=== PATIENT | male | born 1955 | race Caucasian/White ===

== ENCOUNTER 2019-04-19 07:30 | Outpatient (CLI) | payer MEDICARE, SELFPAY ==
--- NOTE | ~2019-04-19 | US_ITS ---
EXAMINATION: US aorta DATE: 04/19/2019 08:19 INDICATION: Abdominal aortic aneurysm. TECHNIQUE: Grayscale, color Doppler, and pulsed Doppler images of the aorta and common iliac arteries were obtained. COMPARISON: None. FINDINGS: The aorta is normal in caliber. The right common iliac artery is normal in caliber. The left common i liac artery is normal in caliber. IMPRESSION: 1. No abdominal aortic aneurysm. Reviewed, dictated and finalized at location A. [facility]NER
== END 2019-04-19 07:31 | disposition home or self-care (01) ==
LOC: CHSIMG 07:35
PROVIDERS: PCP Internal Medicine; Visit Provider Internal Medicine
DX: I71.9 Aortic aneurysm of unspecified site, without rupture (principal)
CPT/HCPCS: 76775

== ENCOUNTER 2019-05-10 06:58 | Outpatient (CLI) | payer MEDICARE, SELFPAY ==
--- NOTE | 2019-05-17 02:55 | SLEEP_ITS ---
Home Sleep Test DATE OF STUDY: 05/10/2019 ORDERING PROVIDER: Abhijit Vail, nurse practitioner. REASON FOR THIS STUDY: Obstructive sleep apnea syndrome. HISTORY: This patient is a 63-year-old man, 5 feet 9 inches tall, weighing 190 pounds with a body mass index of 28 kg/metered square. He has a history of obstructive sleep apnea syndrome, on CPAP. He has lost 100 pounds and his pressure on his device is too high. He does try to use CPAP at night, but it is difficult due to the excessive pressure. This has been going on several months. He thinks he does not need a CPAP any longer. He does not awaken from sleep feeling short of breath, does not awaken at night with heartburn, belching, or coughing. He denies snoring. He occasionally has trouble sleeping with a cold. He does not gasp for breath at night, does not have breathing problems witnessed by others. Does not sweat excessively at night and does not notice his heart pounding or beating irregularly at night. He does not fall asleep during the day involuntarily, or while driving. He does not fall asleep during physical effort. He denies loss of muscle tone with strong emotion. He does not feel paralyzed on waking or falling asleep. He rarely has vivid dreamlike scenes upon awakening or falling asleep. He is never afraid to go to sleep and denies nightmares. He occasionally remembers his dreams. He rarely has racing thoughts. He does not have sadness or depression. He rarely has anxiety. He rarely has muscular tension or notices parts of his body jerking. He rarely kicks at night. He rarely has crawly achy feelings in his legs or leg pain at night. He denies morning jaw pain or grinding his teeth. He occasionally is bothered by pain during the day. He is not awakened by pain at night. He rarely wakes up feeling stiff in the morning with sore achy muscles. He is retired and does not have any daytime dysfunction due to excessive sleepiness. He normally goes to bed at 10:30 p.m., falling asleep within 10 minutes and will sleep through the night unless the dog wakes him up. He estimates 5 to 6 hours of sleep at night. He wakes in the morning at 5 a.m. Weekend schedule is the same. He does not take naps. Most of the time he feels good in the morning. MEDICAL COMORBIDITIES: Seasonal allergies, mild COPD, kidney stones, multiple joint surgeries including 2 knee replacements. He had a gastric bypass surgery. He has a cage surgically placed in his neck, tonsillectomy. MEDICATIONS: 1. Allopurinol 100 mg daily for kidney stones. 2. Calcium 3 times a day. 3. Magnesium supplements 1 daily. 4. B12 daily. 5. Multivitamin twice a day. 6. Vitamin C twice a day. 7. Biotin once daily. HABITS: Never smoked tobacco. No caffeine or alcohol. DESCRIPTION OF THE STUDY: On the [place] Sleepiness Scale, his score is 3. This was conducted as an unattended home sleep test with 4-channel monitoring including respiratory effort channel, snoring channel, pulse oximetry, and heart rate channel. This study was scored using [facility] guidelines. The duration was 7 hours 12 minutes. The apnea-hypopnea index is 7.4. The oxygen desaturation index is 7.5. The lowest desaturation is 84%. Mean saturation for the study was 94%. He had 3 apneas, which were all obstructive. He had 50 hypopneas. He had 200 snoring events and desaturated 53 times, spending 3 minutes below 88% saturation, which was 1% of the study. Heart rate ranged from 51 to 86. IMPRESSION: This home sleep test shows evidence of mild obstructive sleep apnea syndrome G47.33 with desaturation to 84%, mild snoring, and 1 minute spent below 88% saturation. The minimum desaturation was 84%. The patient has a prior history of obstructive sleep apnea syndrome
== END 2019-05-10 06:59 | disposition home or self-care (01) ==
LOC: ANHCSM 06:58
PROVIDERS: PCP Internal Medicine; Visit Provider Nurse Practitioner Family
DX: G47.33 Obstructive sleep apnea (adult) (pediatric) (principal)
CPT/HCPCS: 95806

== ENCOUNTER 2022-09-19 11:01 | Outpatient (CLI) | payer MEDICARE, SELFPAY ==
--- NOTE | ~2022-09-19 | CT_ITS ---
EXAMINATION: CT abdomen pelvis wo con DATE: 09/19/2022 11:37 INDICATION: Abdominal pain TECHNIQUE: Computed tomography (CT) of the abdomen and pelvis was performed without intravenous contr ast. The dose-length product (DLP) was 1467.02 mGy-cm. Automated exposure control and iterative recon struction technique were employed. COMPARISON: None FINDINGS: Minimal dependent atelectasis is present in the lung bases. The heart size is normal. Surgi peter changes in the stomach are consistent with weight loss surgery. The liver, spleen, and adrenal gl ands are normal. Punctate calcifications of the pancreas are consistent with chronic pancreatitis. St ones are present in the gallbladder which is mildly distended. No pericholecystic inflammation is carisa ntified. The kidneys are unremarkable. There is mild periportal lymphadenopathy, likely reactive. No free intraperitoneal gas or evidence of bowel obstruction. Changes of bilateral hip arthroplasty obsc ure visualization of the low pelvis. There is moderate lumbar spondylosis. IMPRESSION: 1. Cholelithiasis and mild gallbladder distention without additional findings of cholecystitis. Recom mend correlation for right upper quadrant tenderness. Reviewed, dictated and finalized at location B. IMPRESSION: 1. Cholelithiasis and mild gallbladder distention without additional findings o f cholecystitis. Recommend correlation for right upper quadrant tenderness.
[2022-09-19 11:22] LABS: Basophils Absolute Auto 0.03 K/mm3 (0.00-0.10); Basophils Percent Auto 0.4 % (0.0-1.0); Eosinophils Absolute Auto 0.02 K/mm3 (0.02-0.50); Eosinophils Percent Auto 0.3 % (1.0-6.0); Hematocrit 45.3 % (37.0-46.0); Hemoglobin 14.9 g/dL (12.4-15.3); Immature Granulocyte Absolute 0.03 K/mm3 (0.00-0.00); Immature Granulocyte Percent A 0.4 % (0.0-0.0); Lymphocytes Absolute Auto 0.62 K/mm3 (1.10-4.50); Lymphocytes Percent Auto 8.5 % (18.0-42.0); Mean Corpuscular HGB Conc 32.9 g/dL (32.0-36.0); Mean Corpuscular Hemoglobin 28.9 pg (27.0-31.0); Mean Corpuscular Volume 87.8 fL (78.0-102.0); Mean Platelet Volume 9.9 fl (8.7-11.0); Monocytes Absolute Auto 0.52 K/mm3 (0.10-0.90); Monocytes Percent Auto 7.1 % (2.0-11.0); Neutrophils Absolute Auto 6.1 K/mm3 (1.7-7.2); Neutrophils Percent Auto 83.3 % (50.0-70.0); Platelet Count Result 143 K/mm3 (150-420); Red Blood Count 5.16 M/mm3 (4.70-6.10); Red Cell Distribution Width 12.2 % (11.6-14.4); White Blood Count 7.3 K/mm3 (4.8-10.8)
[2022-09-19 11:50] LABS: Alanine Aminotransferase 19 U/L (16-63); Albumin Level 3.3 g/dL (3.4-5.0); Alkaline Phosphatase 75 U/L (46-116); Anion Gap 11 mmol/L (8-16); Aspartate Amino Transferase 21 U/L (15-37); Blood Urea Nitrogen 18 mg/dL (7-18); Calcium 9.1 mg/dL (8.5-10.1); Carbon Dioxide 24 mmol/L (21-32); Chloride 101 mmol/L (98-108); Estimated Glomerular Filt Rate > 60; Glucose 114 mg/dL (70-99); Osmolality Calculated 284 mOsm/kg (285-295); Potassium 4.1 mmol/L (3.5-5.1); Prostate Specific Antigen 8.9 ng/mL (< OR = 4.0); Sodium 136 mmol/L (136-145); Total Protein 7.6 g/dL (6.4-8.2)
== END 2022-09-19 11:02 | disposition home or self-care (01) ==
LOC: CHSLAB 11:05
PROVIDERS: PCP Internal Medicine; Visit Provider Nurse Practitioner Family
DX: R10.9 Unspecified abdominal pain (principal); R50.9 Fever, unspecified; K80.20 Calculus of gallbladder without cholecystitis without obstruction; N41.9 Inflammatory disease of prostate, unspecified
CPT/HCPCS: 36415; 74176; 80053; 84153; 85025; 87040

== ENCOUNTER 2022-10-16 09:40 | Outpatient (CLI) | payer MEDICARE, SELFPAY ==
[2022-10-16 09:56] LABS: Hematocrit 45.4 % (37.0-46.0); Mean Corpuscular Hemoglobin 29.2 pg (27.0-31.0); Mean Corpuscular Volume 88.3 fL (78.0-102.0); Mean Platelet Volume 9.6 fl (8.7-11.0); Platelet Count Result 153 K/mm3 (150-420); Red Blood Count 5.14 M/mm3 (4.70-6.10); Red Cell Distribution Width 12.8 % (11.6-14.4); White Blood Count 3.7 K/mm3 (4.8-10.8)
[2022-10-16 09:59] LABS: Appearance Urine Clear (Clear); Bilirubin Urine Negative (Negative); Blood Urine Negative (Negative); Color Urine Yellow (Yellow); Glucose Urine UA Negative (Negative); Ketones Urine Negative (Negative); Leukocyte Esterase Ur Negative LEU/UL (Negative); Nitrate Urine Negative (Negative); Protein Urine Negative (Negative); Specific Grav Ur 1.015 (1.010-1.020); Urobilinogen Urine 0.2 mg/dL (0.2-1.0)
[2022-10-16 10:05] LABS: Add Urine Microscopic? NO
[2022-10-16 10:18] LABS: Band Neutrophils Percent 0 % (0-6); Basophils Absolute Manual 0.03 K/mm3 (0-0.1); Basophils Percent Manual 1 % (0-1); Eosinophils Absolute Manual 0.11 K/mm3 (0.02-0.5); Eosinophils Percent Manual 3 % (1-6); Lymphocytes Absolute Manual 1.22 K/mm3 (1.1-4.5); Lymphocytes Percent Manual 33 % (18-44); Metamyelocytes Percent 0 %; Monocytes Percent Manual 11 % (3-9); Myelocytes Percent 0 %; Neutrophils Absolute Manual 1.92 K/mm3 (1.3-6.7); Neutrophils Percent Manual 52 % (46-73); Platelet Estimate Adequate (Adequate); Total Cells Counted 100
[2022-10-16 10:44] LABS: Alanine Aminotransferase 20 U/L (16-63); Albumin Level 3.7 g/dL (3.4-5.0); Alkaline Phosphatase 72 U/L (46-116); Amylase 52 U/L (25-115); Anion Gap 8 mmol/L (8-16); Aspartate Amino Transferase 25 U/L (15-37); Bilirubin,Total 0.8 mg/dL (0.00-1.00); Blood Urea Nitrogen 16 mg/dL (7-18); Calcium 8.8 mg/dL (8.5-10.1); Carbon Dioxide 29 mmol/L (21-32); Chloride 105 mmol/L (98-108); Estimated Glomerular Filt Rate > 60; Glucose 88 mg/dL (70-99); Lipase 41 U/L (16-77); Osmolality Calculated 294 mOsm/kg (285-295); Potassium 4.6 mmol/L (3.5-5.1); Sodium 142 mmol/L (136-145); Total Protein 6.9 g/dL (6.4-8.2)
== END 2022-10-16 09:41 | disposition home or self-care (01) ==
LOC: CHSLAB 09:43
PROVIDERS: PCP Internal Medicine; Visit Provider Internal Medicine
DX: K81.0 Acute cholecystitis (principal)
CPT/HCPCS: 36415; 80053; 81003; 82150; 83690; 85025

== ENCOUNTER 2023-07-10 16:24 | Outpatient (CLI) | payer MEDICARE, SELFPAY ==
--- NOTE | ~2023-07-10 | XR_ITS ---
EXAMINATION: XR hand RT min 3V, XR wrist RT min 3V DATE: 07/10/2023 16:43 INDICATION: 2 weeks of right hand and wrist pain TECHNIQUE: 1. Posteroanterior, oblique, and lateral views of the right wrist were obtained. 2. Dorsal palmar, oblique and lateral views of the right hand were obtained. COMPARISON: None. FINDINGS: Alignment of the right hand and wrist is normal. No fracture identified. Mild polyarticular osteoart hritis including at the radiocarpal, triscaphe, first carpometacarpal and all of the metacarpophalang eal and interphalangeal joints. No erosions to suggest inflammatory arthritis. No focal soft tissue s welling. IMPRESSION: 1. 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 No acute osseous abnormalit y. Reviewed, dictated and finalized at location A. IMPRESSION: 1. 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 No ac [place] osseous abnormality.
== END 2023-07-10 16:25 | disposition home or self-care (01) ==
PROVIDERS: PCP Internal Medicine; Visit Provider Internal Medicine
DX: M19.041 Primary osteoarthritis, right hand (principal); M19.031 Primary osteoarthritis, right wrist
CPT/HCPCS: 73110; 73130

== ENCOUNTER 2023-12-17 12:34 | Outpatient (CLI) | payer MEDICARE, SELFPAY ==
--- NOTE | ~2023-12-17 | XR_ITS ---
Left foot Technique: AP, oblique, and lateral views were obtained. Clinical History: Pain Findings: No acute fracture or dislocation is seen. Osseous alignment is anatomic. Mild scattered deg enerative joint disease present. Soft tissues are unremarkable. Impression: Mild scattered degenerative joint disease. Reviewed, dictated and finalized at location . Impression: Mild scattered degenerative joint disease.
--- NOTE | ~2023-12-17 | XR_ITS ---
Left ankle Technique: AP, oblique, and lateral views were obtained. Clinical History: Pain Findings: No acute fracture or dislocation is seen. Osseous alignment is anatomic. Ankle mortise and other visualized joint spaces are preserved. Soft tissues are otherwise unremarkable. Impression: Unremarkable left ankle. Reviewed, dictated and finalized at location . Impression: Unremarkable left ankle.
== END 2023-12-17 12:35 | disposition home or self-care (01) ==
PROVIDERS: PCP Internal Medicine; Visit Provider Internal Medicine
DX: M25.572 Pain in left ankle and joints of left foot (principal)
CPT/HCPCS: 73610; 73630

== ENCOUNTER 2023-12-21 07:52 | Outpatient (RCR) | payer MEDICARE, SELFPAY ==
--- NOTE | 2023-12-21 08:47 | PTOPEVAL1 ---
Assessment and note entered by Seth Chaudhry Evaluation Information Assessment Status Evaluation Diagnosis left peroneal tendonitis ICD-10 Condition Codes (PT) M25.572 Onset 12/15/23 Subjective Information Pt. reports that he has been walking long distances in town lately. He states that last week he finished his walk and was feeling good. He states that he sat briefly after the walk and when getting up he noticed severe left ankle pain. He reports that he has improved significantly over the weekend. He states that pain is on the outside of the left ankle and is tender to touch. He states that he enjoys walking, and returned to walking with little complication yesterday. He states that he has not recent trauma to the left ankle. He reports that his goal for therapy is to reduce his pain. Reported Pain Level Pain Score 0: Self Report Assessment PT Clinical Summary Pt. is a 68 year old male who enters the clinic with a diagnosis of peroneal tendonitis. He present with improving condition since his initial injury. On this date functional deficits are minimal. At this time provided the pt. with a HEP to address ROM deficits and to address any strength deficits. He is independent with a HEP and will be discharged from our care. Plan of Care PT Services Indicated Yes Treatment Frequency and D/C from PT to an independent HEP. Duration These treatments will address the objective and functional deficits as defined above. The patient will be advanced safely and appropriately in order for the patient to progress towards his/her prior level of function. Additional exercises will be introduced and as well as a comprehensive home exercise program upon discharge, if needed, ?to ensure carryover of functional gains achieved in the clinic. This treatment plan has been reviewed and agreement upon by the patient.
== END 2023-12-21 09:05 | disposition home or self-care (01) ==
LOC: CHSPT 07:52
PROVIDERS: PCP Internal Medicine; Visit Provider Internal Medicine
DX: M76.72 Peroneal tendinitis, left leg (principal)
CPT/HCPCS: 97110; 97161